=== PATIENT | female | born 1985 | race Asian ===

== ENCOUNTER 2023-11-06 12:50 | Outpatient (CLI) | payer BC | END 2023-11-06 12:51 | disposition home or self-care (01) | LOC: CSHMAMMO 12:50 | PROVIDERS: ATTEND Family Medicine | DX: Z12.31 Encounter for screening mammogram for malignant neoplasm of breast (principal) | CPT/HCPCS: 77067 ==

== ENCOUNTER 2024-10-01 07:58 | Outpatient (CLI) | payer BC | END 2024-10-01 07:59 | disposition home or self-care (01) | LOC: CSHULT 07:58 | PROVIDERS: ATTEND Family Medicine | DX: B19.10 Unspecified viral hepatitis B without hepatic coma (principal) | CPT/HCPCS: 76700 ==